=== PATIENT | male | born 2000 | race Caucasian/White ===

== ENCOUNTER 2020-10-21 23:44 | Emergency (ER) | payer SELFPAY ==
[~2020-10-21] VITALS: Ht 103 cm; Wt 83.6 kg
[2020-10-21 23:54] VITALS: BP 138/72
[2020-10-22] MEDS ORDERED: RT-ALBUINH IH (00:14)
[2020-10-22] MEDS ORDERED: PRD50T PO (00:14)
[2020-10-22] MEDS ORDERED: predniSONE 20 MG TAB PO ONE (00:15)
[2020-10-22] MEDS ORDERED: RT-ALBUTEROL/IPRATROPIUM 3 ML (DUONEB) VIAL INH ONE (00:15)
--- NOTE | 2020-10-22 00:18 | ED Cough/URI ---
General Chief Complaint: Cough/Cold/Flu Symptoms Stated Complaint: COVID EXPO Nursing Triage Note: pt reports covid exposure 2 weeks ago, c/o cough and nasal drainage, pt has not taken anything for symptoms Sepsis Screen: No Definite Risk Source: patient Exam Limitations: no limitations History of Present Illness Date Seen by Provider: Oct 22, 2020 Time Seen by Provider: 00:00 Initial Comments 20 y/o male presents w a cough for 3 days. head congestion and drainage as well. Worried he might have Covid-19. smokes daily Allergies and Home Medications Allergies Coded Allergies: No Known Drug Allergies (Unverified , 10/22/20) Home Medications Albuterol Sulfate 1 Puff Puff, 2 PUFF IH Q4H 1 PUFF = 90 MCG Prescribed by: LOREE FERNANDO on 10/22/2013 Prednisone 50 Mg Tab, 50 MG PO DAILY Prescribed by: LOREE FERNANDO on 10/22/2013 Patient Home Medication List Home Medication List Reviewed: Yes Review of Systems Review of Systems Constitutional: see HPI; No dizziness, No fever, No malaise, No weakness EENTM: see HPI, nose congestion; No hoarseness, No mouth pain, No mouth swelling, No throat pain, No throat swelling Respiratory: see HPI, cough, short of breath, wheezing Cardiovascular: No chest pain, No edema, No palpitations Gastrointestinal: No abdominal pain, No diarrhea, No nausea, No vomiting Musculoskeletal: No back pain Skin: No change in color, No rash Psychiatric/Neurological: Denies Numbness, Denies Paresthesia Past Mvkcghp-Zyegjf-Edwoik Hx Past Med/Social Hx: Reviewed Nursing Past Med/Soc Hx Patient Social History Alcohol Use: Occasionally Uses Recreational Drug Use: No Smoking Status: Current Everyday Smoker 2nd Hand Smoke Exposure: No Recent Foreign Travel: No Contact w/Someone Who Travel: No Recent Infectious Disease Expo: No Recent Hopitalizations: No Physical Abuse: No Sexual Abuse: No Mistreated: No Fear: No Seasonal Allergies Seasonal Allergies: No Past Medical History Surgeries: No Respiratory: No Cardiac: No Neurological: No Genitourinary: No Gastrointestinal: No Musculoskeletal: No Endocrine: No HEENT: No Cancer: No Psychosocial: No Integumentary: No Blood Disorders: No Physical Exam Vital Signs - First Documented Capillary Refill : Less Than 3 Seconds Height: '" Weight: lbs. oz. kg; 78.00 BMI Method: General Appearance: WD/WN, no apparent distress HEENT: PERRL/EOMI, normal ENT inspection Neck: non-tender, supple Respiratory: chest non-tender, no respiratory distress, no accessory muscle use, rhonchi, wheezing Cardiovascular: regular rate, rhythm, no edema, no JVD Gastrointestinal: non tender, soft Extremities: non-tender, normal inspection Neurologic/Psychiatric: no motor/sensory deficits, alert, normal mood/affect, oriented x 3 Progress/Results/Core Measures Suspected Sepsis Recent Fever Within 48 Hours: No Infection Criteria Present: None New/Unexplained Altered Menta: No Sepsis Screen: No Definite Risk SIRS Temperature: Pulse: 77 Respiratory Rate: 16 Blood Pressure 138 /72 Mean: 94 Results/Orders My Orders Orders - LOREE FERNANDO DO Chest 1 View Ap/Pa Only (10/22/20 00:11) Albuterol/Ipra Inhalation Soln (Duoneb I (10/22/20 00:15) Prednisone Tablet (Deltasone Tablet) (10/22/20 00:15) Svn Small Volume Nebulizer (10/22/20 00:11) Medications Given in ED Current Medications Medications Dose Ordered Sig/Alejandra Route Start Time Stop Time Status Last Admin Dose Admin Albuterol/ Ipratropium 3 ml ONCE ONCE INH 10/22/20 00:15 10/22/20 00:16 DC 10/22/20 00:20 3 ML Prednisone 40 mg ONCE ONCE PO 10/22/20 00:15 10/22/20 00:16 DC 10/22/20 00:20 40 MG Vital Signs/I&O 10/21/20 10/21/20 23:54 23:54 Temp 37.0 Pulse 77 Resp 16 B/P (MAP) 138/72 (94) Pulse Ox 98 O2 Delivery Room Air Room Air Capillary Refill : Less Than 3 Seconds Blood Pressure Mean: 94 Diagnostic Imaging Diagonstic Imaging: Xray Plain Films/CT/US/NM/MRI: chest Comments hyperexpanded lungs without infiltration. peribronchial cuffing c/w bronchitis Reviewed: Reviewed by Me Departure Impression Primary Impression: Bronchitis Disposition: 01 HOME, SELF-CARE Condition: Stable Departure-Patient Inst. Patient Instructions: Acute Bronchitis, Adult (DC), Quitting Smoking for Teens and Young Adults Add. Discharge Instructions: Follow up with your PCP or [facility] in 10 days if not improving, ER sooner if worse. Please take the following vitamins for the next 1 month: Vitamin C 2000mg / day Vitamin D 2000IU / day Zinc 100mg / day You should take "DayQuil and NyQuil-severe" as needed for congestion and cough related symptoms All discharge instructions reviewed with patient and/or family. Voiced understanding. Scripts Prednisone (Prednisone) 50 Mg Tab 50 MG PO DAILY, #5 TAB Prov: LOREE FERNANDO DO 10/22/20 Albuterol Sulfate (PROAIR HFA) 1 Puff Puff 2 PUFF IH Q4H, #1 PUFF 1 PUFF = 90 MCG Prov: LOREE FERNANDO DO 10/22/20 LOREE FERNANDO DO Oct 22, 2020 00:18
--- NOTE | 2020-10-22 06:52 | Diagnostic Imaging Report ---
INDICATION: Cough. Wheezing. FINDINGS: Portable chest. The lungs are well-aerated and clear. There is mild hyperaeration of the lungs bilaterally. The heart is not enlarged. No pulmonary edema or hilar adenopathy. No pneumothorax or pleural effusion. No bony abnormalities. IMPRESSION: Mild hyperaeration of the lungs, otherwise negative chest. Dictated by: Dictated on workstation # [id number]
== END 2020-10-22 00:33 | disposition home or self-care (01) ==
LOC: EDUNIT# 23:44 → ER FS 23:50
DX: J40 Bronchitis, not specified as acute or chronic (principal); F17.200 Nicotine dependence, unspecified, uncomplicated; Z79.52 Long term (current) use of systemic steroids
CPT/HCPCS: 71045